=== PATIENT | female | born 1975 | race Caucasian/White ===

== ENCOUNTER 2019-02-02 19:53 | Emergency (ER) | payer SELFPAY, MEDICAID ==
[2019-02-02] MEDS: HYDROCODONE/APAP (10/325) TAB PO (20:38)
[2019-02-02 21:08] LABS: URINE BLOOD (Dip) POC Negative (NEGATIVE); URINE GLUCOSE (Dip) POC Negative (NEGATIVE); URINE KETONES (Dip) POC Negative (NEGATIVE); URINE LEUKOCYTE EST (Dip) POC Negative (NEGATIVE); URINE NITRITE (Dip) POC Negative (NEGATIVE); URINE TOTAL PROTEIN POC Negative (NEGATIVE)
[2019-02-02 21:08] LABS: URINE PH (Dip) POC 6.5 (5.0-8.5)
== END 2019-02-02 21:37 | disposition home or self-care (01) ==
LOC: FTE 19:53
DX: R51 Headache (principal)
CPT/HCPCS: 81003; 81025; 99283